=== PATIENT | female | born 1990 | race Caucasian/White ===

== ENCOUNTER 2020-08-06 05:20 | Inpatient (IN) | payer OTHER ==
--- NOTE | 2020-08-06 05:30 | ED ---
Recheck HPI - General Stated Complaint: DKA Time Seen by Provider: 08/06/20 05:24 Source: RN notes reviewed, old records reviewed Limitations: altered mental status, physical limitation - History of Present Illness Initial Comments: This is a 29-year-old female poor story coming in is accepted transfer for DKA. Patient has significant distress brought in by EMS in the transfer breath. Patient poor historian secondary to severe illness and DKA MD Complaint: abnormal lab (DKA), other (accepted in transfer) -: unknown Returns Today for: Called Because of Abnormal Lab/Test, persistent/worsening pain related to initial visit (abdominal pain) Symptoms Since Prior Visit: worsening pain Context: called for abnormal lab result (transfer for DKA) Associated Symptoms: chills, shortness of breath Treatments Prior to Arrival: Given Pain Meds on, other (in insulin GTT) - Related Data Home Medications Medication Instructions Recorded Confirmed ARIPiprazole [Abilify] 2 mg PO DAILY 08/06/20 08/06/20 Azelastine HCl [Astepro] 1 - 2 spray EA NOSTRIL BID 08/06/20 08/06/20 Dicyclomine [Bentyl] 10 mg PO QID PRN 08/06/20 08/06/20 Empagliflozin [Jardiance] 25 mg PO DAILY 08/06/20 08/06/20 Ergocalciferol [Vitamin D2 50,000 unit PO Q7D 08/06/20 08/06/20 (DRISDOL)] FLUoxetine HCL [PROzac] 10 mg PO DAILY 08/06/20 08/06/20 Fexofenadine HCl [Shelbie Allergy] 180 mg PO DAILY 08/06/20 08/06/20 Folic Acid 2 mg PO DAILY 08/06/20 08/06/20 Lovastatin [Mevacor] 20 mg PO HS 08/06/20 08/06/20 Metoclopramide [Reglan] 5 mg PO ACHS 08/06/20 08/06/20 Metoprolol Tartrate [Lopressor] 25 mg PO BID 08/06/20 08/06/20 Montelukast Sodium [Singulair] 10 mg PO HS 08/06/20 08/06/20 Ondansetron Odt [Zofran ODT] 4 mg PO Q8HR PRN 08/06/20 08/06/20 Pantoprazole [Protonix] 40 mg PO DAILY 08/06/20 08/06/20 busPIRone HCL 15 mg PO BID 08/06/20 08/06/20 clonazePAM [KlonoPIN] 0.5 mg PO BID PRN 08/06/20 08/06/20 guanFACINE [Tenex] 1 mg PO HS 08/06/20 08/06/20 lamoTRIgine 200 mg PO BID 08/06/20 08/06/20 lisinopriL [Zestril] 5 mg PO DAILY 08/06/20 08/06/20 metFORMIN HCL ER [Glucophage Xr] 1,000 mg PO BID 08/06/20 08/06/20 traZODone HCL 150 mg PO HS 08/06/20 08/06/20 Previous Rx's Medication Instructions Recorded Insulin Glargine,Hum.rec.anlog 30 unit SQ DAILY #0 08/09/20 [Lantus Solostar] Insulin Lispro [Admelog Solostar] 2 units SQ DIRECTED #5 pen 08/09/20 Allergies Allergy/AdvReac Type Severity Reaction Status Date / Time No Known Allergies Allergy Verified 08/06/20 05:36 Review of Systems ROS Statement: Those systems with pertinent positive or pertinent negative responses have been documented in the HPI. ROS Other: All systems not noted in ROS Statement are negative. General Exam Limitations: altered mental status, physical limitation General appearance: alert, anxious, lethargic, in distress Head exam: Present: atraumatic, normocephalic, normal inspection Eye exam: Present: normal appearance, PERRL, EOMI. Absent: scleral icterus, conjunctival injection, periorbital swelling ENT exam: Present: normal exam, mucous membranes moist Neck exam: Present: normal inspection. Absent: tenderness, meningismus, lymphadenopathy Respiratory exam: Present: respiratory distress, other (tachypnea). Absent: wheezes, rales, rhonchi, stridor Cardiovascular Exam: Present: normal rhythm, tachycardia, normal heart sounds. Absent: systolic murmur, diastolic murmur, rubs, gallop, clicks GI/Abdominal exam: Present: soft, normal bowel sounds. Absent: distended, tenderness, guarding, rebound, rigid Extremities exam: Present: normal inspection, full ROM, normal capillary refill. Absent: tenderness, pedal edema, joint swelling, calf tenderness Back exam: Present: normal inspection Neurological exam: Present: alert, oriented X3, CN II-XII intact Psychiatric exam: Present: normal affect, normal mood Skin exam: Present: warm, dry, intact, normal color. Absent: rash Course Vital Signs 08/06/20 08/06/20 08/06/20 05:29 06:21 07:25 Temperature 97.3 F L Pulse Rate 130 H 128 H 124 H Pulse Rate [ Coding Clerk ] Respiratory 22 20 16 Rate Blood Pressure 92/60 95/65 85/54 O2 Sat by Pulse 100 100 100 Oximetry 08/06/20 08/06/20 08/06/20 08:04 08:32 09:30 Temperature Pulse Rate 131 H 130 H 131 H Pulse Rate [ Coding Clerk ] Respiratory 16 16 22 Rate Blood Pressure 92/64 90/64 96/71 O2 Sat by Pulse 100 100 100 Oximetry 08/06/20 08/06/20 08/06/20 10:36 11:31 12:01 Temperature 97.9 F Pulse Rate 133 H 133 H 133 H Pulse Rate [ Coding Clerk ] Respiratory 20 16 16 Rate Blood Pressure 107/77 111/87 116/87 O2 Sat by Pulse 98 98 98 Oximetry 08/06/20 08/06/20 08/06/20 13:58 15:29 17:06 Temperature 98.3 F 98.3 F Pulse Rate 126 H 130 H 125 H Pulse Rate [ Coding Clerk ] Respiratory 14 12 16 Rate Blood Pressure 125/83 140/92 138/104 O2 Sat by Pulse 98 97 99 Oximetry 08/06/20 08/06/20 08/06/20 18:19 19:20 21:00 Temperature 98.3 F 98.4 F Pulse Rate 137 H 122 H 118 H Pulse Rate [ Coding Clerk ] Respiratory 16 18 18 Rate Blood Pressure 145/101 126/94 126/88 O2 Sat by Pulse 98 98 99 Oximetry 08/07/20 08/07/20 08/07/20 00:22 01:00 02:30 Temperature 98.2 F Pulse Rate 122 H 125 H 121 H Pulse Rate [ Coding Clerk ] Respiratory 18 18 18 Rate Blood Pressure 134/98 117/92 108/82 O2 Sat by Pulse 100 98 97 Oximetry 08/07/20 08/07/20 08/07/20 03:30 06:00 07:00 Temperature 98.0 F Pulse Rate 117 H 111 H 113 H Pulse Rate [ Coding Clerk ] Respiratory 18 18 18 Rate Blood Pressure 110/79 105/67 96/61 O2 Sat by Pulse 98 98 97 Oximetry 08/07/20 08/07/20 08/07/20 07:45 08:07 09:36 Temperature Pulse Rate 108 H 95 Pulse Rate [ 108 H Coding Clerk ] Respiratory 18 18 Rate Blood Pressure 102/65 90/68 O2 Sat by Pulse 96 98 Oximetry 08/07/20 08/07/20 08/07/20 10:18 13:02 14:01 Temperature Pulse Rate 98 101 H 100 Pulse Rate [ Coding Clerk ] Respiratory 18 18 18 Rate Blood Pressure 94/60 107/68 98/76 O2 Sat by Pulse 97 98 98 Oximetry 08/07/20 08/07/20 08/07/20 17:00 18:49 21:14 Temperature Pulse Rate 104 H 103 H 108 H Pulse Rate [ Coding Clerk ] Respiratory 18 18 16 Rate Blood Pressure 107/75 119/84 117/73 O2 Sat by Pulse 98 98 98 Oximetry - Reevaluation(s) Reevaluation #1: 08/06/20 06:36 Medical record is reviewed 08/06/20 06:36 Transferring paperwork is reviewed 08/06/20 06:36 I also did speak with transferring physician regarding findings, Lab values are redrawn, patient still in significant distress Medical Decision Making - Medical Decision Making This is a 29-year-old female DF for evaluation who is accepted as transfer for severe DKA, patient reevaluated here in the ER, patient will be admitted to ICU in severe DKA - Lab Data Result diagrams: 08/09/20 06:39 08/09/20 06:39 Lab Results 08/06/20 08/06/20 08/06/20 Range/Units 06:07 06:07 06:07 WBC 38.7 H (3.8-10.6) k/uL RBC 5.07 (3.80-5.40) m/uL Hgb 15.0 (11.4-16.0) gm/dL Hct 50.9 H (34.0-46.0) % MCV 100.2 H (80.0-100.0) fL MCH 29.6 (25.0-35.0) pg MCHC 29.5 L (31.0-37.0) g/dL RDW 13.2 (11.5-15.5) % Plt Count 384 (150-450) k/uL MPV 10.4 Neutrophils % (Manual) 68 % Band Neuts % (Manual) 11 % Lymphocytes % (Manual) 11 % Monocytes % (Manual) 8 % Metamyelocytes % 2 % Myelocytes % 1 % Neutrophils # (Manual) 30.50 H (1.3-7.7) k/uL Lymphocytes # (Manual) 4.26 (1.0-4.8) k/uL Monocytes # (Manual) 3.10 H (0-1.0) k/uL Metamyelocytes # (Man) 0.77 H (0) k/uL Myelocytes # (Manual) 0.39 H (0) k/uL Nucleated RBCs 0 (0-0) /100 WBC Manual Slide Review Performed Hypochromasia Marked VBG pH (7.31-7.41) VBG pCO2 (37-51) mmHg VBG HCO3 (24-28) mmol/L Sodium 144 (137-145) mmol/L Potassium 6.4 H* (3.5-5.1) mmol/L Chloride 116 H (98-107) mmol/L Carbon Dioxide <5 L* (22-30) mmol/L Anion Gap mmol/L BUN 17 (7-17) mg/dL Creatinine 1.37 H (0.52-1.04) mg/dL Est GFR (CKD-EPI)AfAm 60 (>60 ml/min/1.73 sqM) Est GFR (CKD-EPI)NonAf 52 (>60 ml/min/1.73 sqM) Glucose 319 H (74-99) mg/dL Estimated Ave Glu mg/dL Hemoglobin A1c (4.0-6.0) % Plasma Lactic Acid Duke (0.7-2.0) mmol/L Calcium 8.5 (8.4-10.2) mg/dL Phosphorus 7.7 H (2.5-4.5) mg/dL Total Bilirubin 0.6 (0.2-1.3) mg/dL AST 38 H (14-36) U/L ALT 51 H (4-34) U/L Alkaline Phosphatase 67 (38-126) U/L Creatine Kinase 1461 H* (30-135) U/L Total Protein 7.4 (6.3-8.2) g/dL Albumin 4.6 (3.5-5.0) g/dL Amylase 600 H* (30-110) U/L Lipase 1221 H (23-300) U/L Urine Color Light Yellow Urine Appearance Cloudy H (Clear) Urine pH 5.5 (5.0-8.0) Ur Specific [place] 1.020 (1.001-1.035) Urine Protein 2+ H (Negative) Urine Glucose (UA) 4+ H (Negative) Urine Ketones 4+ H (Negative) Urine Blood Moderate H (Negative) Urine Nitrite Negative (Negative) Urine Bilirubin Negative (Negative) Urine Urobilinogen <2.0 (<2.0) mg/dL Ur Leukocyte Esterase Negative (Negative) Urine WBC 6 H (0-5) /hpf Ur Squamous Epith Cells 1 (0-4) /hpf Amorphous Sediment Rare H (None) /hpf Urine Bacteria Rare H (None) /hpf Hyaline Casts 107 H (0-2) /lpf Urine Mucus Occasional H (None) /hpf Acetone, Qual Positive (Negative) 08/06/20 08/06/20 08/06/20 Range/Units 06:07 06:07 06:07 WBC (3.8-10.6) k/uL RBC (3.80-5.40) m/uL Hgb (11.4-16.0) gm/dL Hct (34.0-46.0) % MCV (80.0-100.0) fL MCH (25.0-35.0) pg MCHC (31.0-37.0) g/dL RDW (11.5-15.5) % Plt Count (150-450) k/uL MPV Neutrophils % (Manual) % Band Neuts % (Manual) % Lymphocytes % (Manual) % Monocytes % (Manual) % Metamyelocytes % % Myelocytes % % Neutrophils # (Manual) (1.3-7.7) k/uL Lymphocytes # (Manual) (1.0-4.8) k/uL Monocytes # (Manual) (0-1.0) k/uL Metamyelocytes # (Man) (0) k/uL Myelocytes # (Manual) (0) k/uL Nucleated RBCs (0-0) /100 WBC Manual Slide Review Hypochromasia VBG pH 6.84 L* (7.31-7.41) VBG pCO2 18 L* (37-51) mmHg VBG HCO3 3 L* (24-28) mmol/L Sodium (137-145) mmol/L Potassium (3.5-5.1) mmol/L Chloride (98-107) mmol/L Carbon Dioxide (22-30) mmol/L Anion Gap mmol/L BUN (7-17) mg/dL Creatinine (0.52-1.04) mg/dL Est GFR (CKD-EPI)AfAm (>60 ml/min/1.73 sqM) Est GFR (CKD-EPI)NonAf (>60 ml/min/1.73 sqM) Glucose (74-99) mg/dL Estimated Ave Glu mg/dL 197 Hemoglobin A1c 8.5 H (4.0-6.0) % Plasma Lactic Acid Duke 2.5 H* (0.7-2.0) mmol/L Calcium (8.4-10.2) mg/dL Phosphorus (2.5-4.5) mg/dL Total Bilirubin (0.2-1.3) mg/dL AST (14-36) U/L ALT (4-34) U/L Alkaline Phosphatase (38-126) U/L Creatine Kinase (30-135) U/L Total Protein (6.3-8.2) g/dL Albumin (3.5-5.0) g/dL Amylase (30-110) U/L Lipase (23-300) U/L Urine Color Urine Appearance (Clear) Urine pH (5.0-8.0) Ur Specific [place] (1.001-1.035) Urine Protein (Negative) Urine Glucose (UA) (Negative) Urine Ketones (Negative) Urine Blood (Negative) Urine Nitrite (Negative) Urine Bilirubin (Negative) Urine Urobilinogen (<2.0) mg/dL Ur Leukocyte Esterase (Negative) Urine WBC (0-5) /hpf Ur Squamous Epith Cells (0-4) /hpf Amorphous Sediment (None) /hpf Urine Bacteria (None) /hpf Hyaline Casts (0-2) /lpf Urine Mucus (None) /hpf Acetone, Qual (Negative) - Radiology Data Radiology results: report reviewed (XR abd series and chest), image reviewed Critical Care Time Critical Care Time: Yes Total Critical Care Time: 65 Disposition Clinical Impression: Abdominal pain, DKA (diabetic ketoacidoses), Tachycardia, Rhabdomyolysis, Pancreatitis Disposition: ADMITTED IP TO THIS [facility] Condition: Good Is patient prescribed a controlled substance at d/c from ED?: No
[2020-08-06] MEDS ORDERED: SODIUM CHLORIDE 0.9% 1,000 ML IV STA ×2 (05:38)
[2020-08-06] MEDS ORDERED: PANTOPRAZOLE 40 MG/10 ML VIAL IVP STA (05:38)
[2020-08-06] MEDS ORDERED: ONDANSETRON 4 MG/2 ML VIAL IVP STA (05:38)
[2020-08-06] MEDS ORDERED: fentaNYL (PF) 50 MCG/ML 2 ML AMP IV STA (05:39)
[2020-08-06 06:26] LABS: Sodium 144 mmol/L (137-145)
[2020-08-06 06:27] LABS: ALT 51 U/L (4-34); AST 38 U/L (14-36); African American GFR (CKD) 60 (>60 ml/min/1.73 sqM); Albumin 4.6 g/dL (3.5-5.0); Alkaline Phosphatase 67 U/L (38-126); Blood Urea Nitrogen 17 mg/dL (7-17); Calcium 8.5 mg/dL (8.4-10.2); Chloride 116 mmol/L (98-107); Glucose 319 mg/dL (74-99); Lipase 1221 U/L (23-300); Non-African American GFR(CKD) 52 (>60 ml/min/1.73 sqM); Phosphorus 7.7 mg/dL (2.5-4.5); Total Bilirubin 0.6 mg/dL (0.2-1.3); Total Protein 7.4 g/dL (6.3-8.2)
[2020-08-06 06:29] LABS: VBG PH 6.84 (7.31-7.41)
[2020-08-06] MEDS ORDERED: SODIUM BICARB 8.4% 50 ML SYR (1 MEQ/ML) IV STA ×2 (06:30)
[2020-08-06] MEDS ORDERED: NALOXONE 0.4 MG/ML 1 ML VIAL IV PRN (06:31)
[2020-08-06] MEDS ORDERED: IPRATROPIUM-ALBUTEROL 3 ML NEB INHALATION PRN (06:31)
[2020-08-06 06:35] LABS: Amorphous Sediment,Urine Rare /hpf; Appearance,Urine Cloudy (Clear); Bacteria,Urine Rare /hpf; Bilirubin,Urine Negative (Negative); Blood,Urine Moderate (Negative); Color,Urine Light Yellow; Glucose,Urine (UA) 4+ (Negative); Hyaline Casts,Urine 107 /lpf (0-2); Leukocyte Esterase,Urine Negative (Negative); Mucus,Urine Occasional /hpf; Nitrite,Urine Negative (Negative); PH, Urine 5.5 (5.0-8.0); Protein,Urine 2+ (Negative); Squamous Epithelial Cell,Urine 1 /hpf (0-4); Urobilinogen,Urine <2.0 mg/dL (<2.0); WBC,Urine 6 /hpf (0-5)
[2020-08-06 06:36] LABS: Ketones,Urine 4+ (Negative)
[2020-08-06 06:39] LABS: HCT 50.9 % (34.0-46.0); Hypochromasia Marked; MCH 29.6 pg (25.0-35.0); MCHC 29.5 g/dL (31.0-37.0); MCV 100.2 fL (80.0-100.0); Mean Platelet Volume 10.4; Platelet Count 384 k/uL (150-450); RBC 5.07 m/uL (3.80-5.40); RDW 13.2 % (11.5-15.5); WBC 38.7 k/uL (3.8-10.6)
[2020-08-06 06:41] LABS: Potassium 6.4 mmol/L (3.5-5.1)
[2020-08-06 06:42] LABS: Amylase 600 U/L (30-110); Carbon Dioxide <5 mmol/L (22-30); Creatine Kinase 1461 U/L (30-135)
[2020-08-06] MEDS ORDERED: Potassium Replacement Protocol 1 EACH MISC MISCELLANE PRN (06:45)
[2020-08-06] MEDS ORDERED: Magnesium Replacement Protocol 1 EACH MISC MISCELLANE PRN (06:45)
[2020-08-06] MEDS ORDERED: SODIUM CHLORIDE 0.9% 1,000 ML IV ONE (06:46)
[2020-08-06] MEDS ORDERED: AMPICILLIN-SULBACTAM 3 GM in SODIUM CHLORIDE 0.9% 100 ML IVPB STA ×2 (06:52→07:34)
[2020-08-06] MEDS: SODIUM CHLORIDE 0.9% 1,000 ML IV SCH ×3 (07:04→18:34)
[2020-08-06 07:18] LABS: Glucose,Whole Blood 274 mg/dL (75-99)
[2020-08-06] MEDS: D5-0.45% NACL WITH KCL 20MEQ/L 1,000 ML IV SCH ×3 (07:27→19:47)
[2020-08-06] MEDS: INSULIN REGULAR 100 UNIT in SODIUM CHLORIDE 0.9% 100 ML IV SCH (07:28)
[2020-08-06 07:58] LABS: Band Neutrophils % 11 %; Lymphocytes # (M) 4.26 k/uL (1.0-4.8); Metamyelocytes # (M) 0.77 k/uL (0); Metamyelocytes % 2 %; Myelocytes # (M) 0.39 k/uL (0); Myelocytes % 1 %; Neutrophils % (M) 68 %; Nucleated Red Blood Cells 0 /100 WBC (0-0); Total Cells Counted 200
[2020-08-06 08:42] LABS: Glucose,Whole Blood 217 mg/dL (75-99)
[2020-08-06 09:43] LABS: Glucose,Whole Blood 177 mg/dL (75-99)
[2020-08-06 10:42] LABS: Glucose,Whole Blood 147 mg/dL (75-99)
[2020-08-06 11:32] LABS: Glucose,Whole Blood 148 mg/dL (75-99)
[2020-08-06] MEDS: MORPHINE SULFATE 4 MG/ML SYRINGE IV PRN ×2 (11:57→18:51)
[2020-08-06] MEDS: ENOXAPARIN 40 MG/0.4 ML SYRINGE SQ SCH (11:57)
[2020-08-06 11:59] LABS: African American GFR (CKD) >90 (>60 ml/min/1.73 sqM); Blood Urea Nitrogen 11 mg/dL (7-17); Chloride 116 mmol/L (98-107); Glucose 164 mg/dL (74-99); Non-African American GFR(CKD) 85 (>60 ml/min/1.73 sqM); Phosphorus 2.2 mg/dL (2.5-4.5); Potassium 4.8 mmol/L (3.5-5.1); Sodium 140 mmol/L (137-145)
[2020-08-06 12:19] LABS: Carbon Dioxide <5 mmol/L (22-30)
[2020-08-06] MEDS ORDERED: clonazePAM 0.5 MG TAB PO PRN (12:23)
[2020-08-06] MEDS ORDERED: DICYCLOMINE 10 MG CAP PO PRN (12:23)
[2020-08-06] MEDS ORDERED: ONDANSETRON 4 MG/2 ML VIAL IVP PRN (12:28)
[2020-08-06 12:36] LABS: Glucose,Whole Blood 162 mg/dL (75-99)
[2020-08-06 13:04] LABS: African American GFR (CKD) >90 (>60 ml/min/1.73 sqM); Anion Gap 18 mmol/L; Blood Urea Nitrogen 10 mg/dL (7-17); Calcium 7.5 mg/dL (8.4-10.2); Chloride 115 mmol/L (98-107); Glucose 162 mg/dL (74-99); Non-African American GFR(CKD) >90 (>60 ml/min/1.73 sqM); Potassium 4.8 mmol/L (3.5-5.1); Sodium 139 mmol/L (137-145)
[2020-08-06 13:08] LABS: Carbon Dioxide 6 mmol/L (22-30)
--- NOTE | 2020-08-06 13:13 | P.CNPUL ---
History of Present Illness Consult date: 08/06/20 Requesting physician: Mihai Brock Chief complaint: Nausea, vomiting, DKA History of present illness: 29-year-old white male patient past medical history of diabetes mellitus type 1, previous history of appendectomy, cholecystectomy, surgery for repair of pyloric stenosis, lifetime nonsmoker who presented to the emergency department on 08/06/2020 for evaluation of persistent worsening pain in the abdomen, nausea vomiting, chills, shortness of breath, and altered mentation. Patient was found to be in acute diabetic ketoacidosis, positive serum acetone, acute anion gap metabolic acidosis with CO2 of less than 5, and acute pancreatitis with amylase of 600, and lipase of 1221. Venous blood gas was obtained showing pH of 6.84, pCO2 of 18, and bicarbonate of only 3, patient was given sodium bicarbonate pu shes, she was fluid resuscitated, and started on insulin infusion. She was started on Unasyn for empiric embedded coverage, blood cultures have been sent and pending at this time, lab work showed leukocytosis, orbital, 38.7, hemoglobin was 15, hematocrit was increased at 50.9 consistent with dehydration. Sodium was 140, potassium 4.8, chloride was 116, CO2 is less than 5, B1 is 11 creatinine 0.91, AST was 38, ALT was 51, CK was 1461, urinalysis was cloudy, showed 2+ protein 4+ glucose, 4+ ketones, moderate amount of blood, no clear evidence of urinary tract infection. Patient continues on the DKA protocol, continues on insulin infusion, she is waking up, she is answering some simple questions, denies any acute distress, no further vomiting, is currently on D5 half-normal saline with 20 of potassium running at 150 ML per hour, her insulin infusion is at 3.5 units per hour. She is sinus tach on the monitor in the low 100s, hemodynamically she stable, repeat blood work is pending at this time. Review of Systems All systems: negative Constitutional: Reports lethargy, Reports weakness, Denies chills, Denies fever Eyes: denies blurred vision, denies pain Ears, nose, mouth and throat: Denies headache, Denies sore throat Cardiovascular: Denies chest pain, Denies shortness of breath Respiratory: Reports dyspnea, Denies cough Gastrointestinal: Reports nausea, Reports vomiting, Denies abdominal pain, Denies diarrhea Genitourinary: Denies dysuria, Denies hematuria Musculoskeletal: Denies myalgias Integumentary: Denies pruritus, Denies rash Neurological: Denies numbness, Denies weakness Psychiatric: Denies anxiety, Denies depression Endocrine: Denies fatigue, Denies weight change Past Medical History Past Medical History: Diabetes Mellitus History of Any Multi-Drug Resistant Organisms: None Reported Past Surgical History: Appendectomy, Cholecystectomy Additional Past Surgical History / Comment(s): pyloric stenosis repair. eye surgery. Past Psychological History: No Psychological Hx Reported Smoking Status: Never smoker Past Alcohol Use History: None Reported Past Drug Use History: None Reported Medications and Allergies Home Medications Medication Instructions Recorded Confirmed Type ARIPiprazole [Abilify] 2 mg PO DAILY 08/06/20 08/06/20 History Azelastine HCl [Astepro] 1 - 2 spray EA NOSTRIL BID 08/06/20 08/06/20 History Dicyclomine [Bentyl] 10 mg PO QID PRN 08/06/20 08/06/20 History Empagliflozin [Jardiance] 25 mg PO DAILY 08/06/20 08/06/20 History Ergocalciferol [Vitamin D2] 50,000 unit PO Q7D 08/06/20 08/06/20 History Exenatide Microspheres [Bydureon 2 mg SQ Q7D 08/06/20 08/06/20 History Pen] FLUoxetine HCL [PROzac] 10 mg PO DAILY 08/06/20 08/06/20 History Fexofenadine HCl [Shelbie Allergy] 180 mg PO DAILY 08/06/20 08/06/20 History Folic Acid 2 mg PO DAILY 08/06/20 08/06/20 History Insulin Glargine,Hum.rec.anlog 40 unit SQ DAILY 08/06/20 08/06/20 History [Lantus Solostar] Lovastatin [Mevacor] 20 mg PO HS 08/06/20 08/06/20 History Metoclopramide [Reglan] 5 mg PO ACHS 08/06/20 08/06/20 History Metoprolol Tartrate [Lopressor] 25 mg PO BID 08/06/20 08/06/20 History Montelukast Sodium [Singulair] 10 mg PO HS 08/06/20 08/06/20 History Ondansetron Odt [Zofran Odt] 4 mg PO Q8HR PRN 08/06/20 08/06/20 History Pantoprazole [Protonix] 40 mg PO DAILY 08/06/20 08/06/20 History Semaglutide [Ozempic] 0.5 mg SQ Q7D 08/06/20 08/06/20 History busPIRone HCL 15 mg PO BID 08/06/20 08/06/20 History clonazePAM [KlonoPIN] 0.5 mg PO BID PRN 08/06/20 08/06/20 History guanFACINE [Tenex] 1 mg PO HS 08/06/20 08/06/20 History lamoTRIgine 200 mg PO BID 08/06/20 08/06/20 History lisinopriL [Zestril] 5 mg PO DAILY 08/06/20 08/06/20 History metFORMIN HCL ER [Glucophage Xr] 1,000 mg PO BID 08/06/20 08/06/20 History traZODone HCL 150 mg PO HS 08/06/20 08/06/20 History Allergies Allergy/AdvReac Type Severity Reaction Status Date / Time No Known Allergies Allergy Verified 08/06/20 05:36 Physical Exam Vitals: Vital Signs Temp Pulse Resp BP Pulse Ox 08/06/20 12:01 133 H 16 116/87 98 08/06/20 11:31 133 H 16 111/87 98 08/06/20 10:36 97.9 F 133 H 20 107/77 98 08/06/20 09:30 131 H 22 96/71 100 08/06/20 08:32 130 H 16 90/64 100 08/06/20 08:04 131 H 16 92/64 100 08/06/20 07:25 124 H 16 85/54 100 08/06/20 06:21 128 H 20 95/65 100 08/06/20 05:29 97.3 F L 130 H 22 92/60 100 Intake and Output 08/05/20 08/06/20 08/06/20 22:59 06:59 14:59 Intake Total 27.837 Output Total 1700 Balance -1672.163 Intake: Intake, IV Titration 27.837 Amount Insulin Regular 100 unit 27.837 In Sodium Chloride 0.9% 100 ml @ 0.1 UNITS/KG/HR 7.238 mls/hr IV .[id number] [facility] Rx#:[id number] Output: Urine 1700 Other: Weight 71.668 kg GENERAL EXAM: Alert, pleasant, 29-year-old white female, awake and alert, oriented times 3, on 2 L of oxygen with a pulse ox of 98% comfortable in no apparent distress. HEAD: Normocephalic/atraumatic. EYES: Normal reaction of pupils, equal size. Conjunctiva pink, sclera white. NOSE: Clear with pink turbinates. THROAT: No erythema or exudates. NECK: No masses, no JVD, no thyroid enlargement, no adenopathy. CHEST: No chest wall deformity. Symmetrical expansion. LUNGS: Equal air entry with no crackles, wheeze, rhonchi or dullness. CVS: Regular rate and rhythm, normal S1 and S2, no gallops, no murmurs, no rubs ABDOMEN: Soft, nontender. No hepatosplenomegaly, normal bowel sounds, no guarding or rigidity. EXTREMITIES: No clubbing, no edema, no cyanosis, 2+ pulses and upper and lower extremities. MUSCULOSKELETAL: Muscle strength and tone normal. SPINE: No scoliosis or deformity SKIN: No rashes CENTRAL NERVOUS SYSTEM: Alert and oriented -3. No focal deficits, tone is normal in all 4 extremities. PSYCHIATRIC: Alert and oriented -3. Appropriate affect. Intact judgment and insight. Results - Laboratory Findings CBC and BMP: 08/06/20 06:07 08/06/20 11:40 Abnormal lab findings: Abnormal Labs 08/06/20 08/06/20 08/06/20 06:07 06:07 06:07 WBC 38.7 H Hct 50.9 H MCV 100.2 H MCHC 29.5 L Neutrophils # (Manual) 30.50 H Monocytes # (Manual) 3.10 H Metamyelocytes # (Man) 0.77 H Myelocytes # (Manual) 0.39 H VBG pH VBG pCO2 VBG HCO3 Potassium 6.4 H* Chloride 116 H Carbon Dioxide <5 L* Creatinine 1.37 H Glucose 319 H POC Glucose (mg/dL) Plasma Lactic Acid [place] Phosphorus 7.7 H AST 38 H ALT 51 H Creatine Kinase 1461 H* Amylase 600 H* Lipase 1221 H Urine Appearance Cloudy H Urine Protein 2+ H Urine Glucose (UA) 4+ H Urine Ketones 4+ H Urine Blood Moderate H Urine WBC 6 H Amorphous Sediment Rare H Urine Bacteria Rare H Hyaline Casts 107 H Urine Mucus Occasional H 08/06/20 08/06/20 08/06/20 06:07 06:07 07:08 WBC Hct MCV MCHC Neutrophils # (Manual) Monocytes # (Manual) Metamyelocytes # (Man) Myelocytes # (Manual) VBG pH 6.84 L* VBG pCO2 18 L* VBG HCO3 3 L* Potassium Chloride Carbon Dioxide Creatinine Glucose POC Glucose (mg/dL) 274 H Plasma Lactic Acid [place] 2.5 H* Phosphorus AST ALT Creatine Kinase Amylase Lipase Urine Appearance Urine Protein Urine Glucose (UA) Urine Ketones Urine Blood Urine WBC Amorphous Sediment Urine Bacteria Hyaline Casts Urine Mucus 08/06/20 08/06/20 08/06/20 08:31 09:32 10:31 WBC Hct MCV MCHC Neutrophils # (Manual) Monocytes # (Manual) Metamyelocytes # (Man) Myelocytes # (Manual) VBG pH VBG pCO2 VBG HCO3 Potassium Chloride Carbon Dioxide Creatinine Glucose POC Glucose (mg/dL) 217 H 177 H 147 H Plasma Lactic Acid [place] Phosphorus AST ALT Creatine Kinase Amylase Lipase Urine Appearance Urine Protein Urine Glucose (UA) Urine Ketones Urine Blood Urine WBC Amorphous Sediment Urine Bacteria Hyaline Casts Urine Mucus 08/06/20 08/06/20 08/06/20 11:30 11:40 12:34 WBC Hct MCV MCHC Neutrophils # (Manual) Monocytes # (Manual) Metamyelocytes # (Man) Myelocytes # (Manual) VBG pH VBG pCO2 VBG HCO3 Potassium Chloride 116 H Carbon Dioxide <5 L* Creatinine Glucose 164 H POC Glucose (mg/dL) 148 H 162 H Plasma Lactic Acid [place] Phosphorus 2.2 L AST ALT Creatine Kinase Amylase Lipase Urine Appearance Urine Protein Urine Glucose (UA) Urine Ketones Urine Blood Urine WBC Amorphous Sediment Urine Bacteria Hyaline Casts Urine Mucus Assessment and Plan Plan: Assessment: #1. Acute diabetic ketoacidosis #2. Severe non-anion gap metabolic acidosis related to the above #3. Dehydration #4. Altered mental status, related to metabolic encephalopathy #5. Rule out possibility of sepsis #6. Leukocytosis #7. Acute pancreatitis #8. Poorly controlled diabetes mellitus #9. Hypertension #10. Bipolar disorder Plan: Continue on DKA protocol, IV fluids, insulin infusion, awaiting repeat the BMP, clinically patient is looking better still little tachycardic, she is waking up, she is answering questions, anticipate improvement in her blood work. Awaiting a bed in the intensive care unit, continue with empiric antibiotics, will obtain baseline chest x-ray, urinalysis has shown no evidence of infection. Her blood cultures are pending, we'll continue to follow I performed a history & physical examination of the patient and discussed their management with my nurse practitioner, Yuki Tolentino. I reviewed the nurse practitioner's note and agree with the documented findings and plan of care. Lung sounds are positive for clear breath sounds. The findings and the impression was discussed with the patient. I attest to the documentation by the nurse practitioner. Time with Patient: Greater than 30
--- NOTE | 2020-08-06 13:36 | XR ---
EXAMINATION TYPE: XR chest 1V portable DATE OF EXAM: 08/06/2020 COMPARISON: NONE HISTORY: Chest pain TECHNIQUE: Single frontal view of the chest is obtained. FINDINGS: There is no focal air space opacity, pleural effusion, or pneumothorax seen. The cardiac silhouette size is within normal limits. The osseous structures are intact. IMPRESSION: 1. No acute process.
[2020-08-06 13:47] LABS: Glucose,Whole Blood 148 mg/dL (75-99)
[2020-08-06] MEDS: ARIPiprazole 2 MG TAB PO SCH (13:49)
[2020-08-06 15:30] LABS: Glucose,Whole Blood 160 mg/dL (75-99)
[2020-08-06 17:05] LABS: Glucose,Whole Blood 168 mg/dL (75-99)
--- NOTE | 2020-08-06 17:17 | P.HPIM ---
History of Present Illness H&P Date: 08/06/20 Chief Complaint: Elevated blood sugars and abdominal pain The patient is a 29-year-old female with a history of diabetes type 1, appendectomy, cholecystectomy, who presented to the emergency room this a.m. for persistent abdominal pain, nausea vomiting, shortness of breath, chills,. The patient states she has been sick since last . She presented and was found to be in DKA with anion gap with a bicarb less than 5, she also was noted to have an acute pancreatitis with an amylase of 600 and lipase of 1221. The patient was given bicarb, IV fluids, she was started on insulin drip, and because of a leukocytosis she was also started on IV Unasyn. The patient was also noted to have an elevated CPK of 1461, a UA showed 2+ protein, 4+ glucose, 4+ ketones, moderate blood. The patient was seen by me and she was still in the emergency room pending a bed in the ICU she was alert and oriented and able to give a history. She denies any other sick contacts, she denies any diarrhea or night sweats. The patient states that she is compliant with her medications. She has been unable to eat because of nausea and vomiting. Review of Systems Complete review of systems was done and negative other than as stated above Past Medical History Past Medical History: Diabetes Mellitus History of Any Multi-Drug Resistant Organisms: None Reported Past Surgical History: Appendectomy, Cholecystectomy Additional Past Surgical History / Comment(s): pyloric stenosis repair. eye surgery. Past Psychological History: No Psychological Hx Reported Smoking Status: Never smoker Past Alcohol Use History: None Reported Past Drug Use History: None Reported Medications and Allergies Home Medications Medication Instructions Recorded Confirmed Type ARIPiprazole [Abilify] 2 mg PO DAILY 08/06/20 08/06/20 History Azelastine HCl [Astepro] 1 - 2 spray EA NOSTRIL BID 08/06/20 08/06/20 History Dicyclomine [Bentyl] 10 mg PO QID PRN 08/06/20 08/06/20 History Empagliflozin [Jardiance] 25 mg PO DAILY 08/06/20 08/06/20 History Ergocalciferol [Vitamin D2] 50,000 unit PO Q7D 08/06/20 08/06/20 History Exenatide Microspheres [Bydureon 2 mg SQ Q7D 08/06/20 08/06/20 History Pen] FLUoxetine HCL [PROzac] 10 mg PO DAILY 08/06/20 08/06/20 History Fexofenadine HCl [Shelbie Allergy] 180 mg PO DAILY 08/06/20 08/06/20 History Folic Acid 2 mg PO DAILY 08/06/20 08/06/20 History Insulin Glargine,Hum.rec.anlog 40 unit SQ DAILY 08/06/20 08/06/20 History [Lantus Solostar] Lovastatin [Mevacor] 20 mg PO HS 08/06/20 08/06/20 History Metoclopramide [Reglan] 5 mg PO ACHS 08/06/20 08/06/20 History Metoprolol Tartrate [Lopressor] 25 mg PO BID 08/06/20 08/06/20 History Montelukast Sodium [Singulair] 10 mg PO HS 08/06/20 08/06/20 History Ondansetron Odt [Zofran Odt] 4 mg PO Q8HR PRN 08/06/20 08/06/20 History Pantoprazole [Protonix] 40 mg PO DAILY 08/06/20 08/06/20 History Semaglutide [Ozempic] 0.5 mg SQ Q7D 08/06/20 08/06/20 History busPIRone HCL 15 mg PO BID 08/06/20 08/06/20 History clonazePAM [KlonoPIN] 0.5 mg PO BID PRN 08/06/20 08/06/20 History guanFACINE [Tenex] 1 mg PO HS 08/06/20 08/06/20 History lamoTRIgine 200 mg PO BID 08/06/20 08/06/20 History lisinopriL [Zestril] 5 mg PO DAILY 08/06/20 08/06/20 History metFORMIN HCL ER [Glucophage Xr] 1,000 mg PO BID 08/06/20 08/06/20 History traZODone HCL 150 mg PO HS 08/06/20 08/06/20 History Allergies Allergy/AdvReac Type Severity Reaction Status Date / Time No Known Allergies Allergy Verified 08/06/20 05:36 Physical Exam Vitals: Vital Signs Temp Pulse Resp BP Pulse Ox 08/06/20 17:06 98.3 F 125 H 16 138/104 99 08/06/20 15:29 98.3 F 130 H 12 140/92 97 08/06/20 13:58 126 H 14 125/83 98 08/06/20 12:01 133 H 16 116/87 98 08/06/20 11:31 133 H 16 111/87 98 08/06/20 10:36 97.9 F 133 H 20 107/77 98 08/06/20 09:30 131 H 22 96/71 100 08/06/20 08:32 130 H 16 90/64 100 08/06/20 08:04 131 H 16 92/64 100 08/06/20 07:25 124 H 16 85/54 100 08/06/20 06:21 128 H 20 95/65 100 08/06/20 05:29 97.3 F L 130 H 22 92/60 100 Intake and Output 08/06/20 08/06/20 08/06/20 06:59 14:59 22:59 Intake Total 30.069 Output Total 1700 Balance -1669.931 Intake: Intake, IV Titration 30.069 Amount Insulin Regular 100 unit 30.069 In Sodium Chloride 0.9% 100 ml @ 0.1 UNITS/KG/HR 7.238 mls/hr IV .[id number] [facility] Rx#:[id number] Output: Urine 1700 Other: Weight 71.668 kg - Constitutional General appearance: no acute distress - EENT Eyes: PERRLA - Respiratory Respiratory: bilateral: CTA - Cardiovascular Tachycardic - Gastrointestinal Localized gastrointestinal: tender: diffuse - Neurologic Neurologic: CNII-XII intact - Musculoskeletal Musculoskeletal: strength equal bilaterally - Psychiatric Psychiatric: A&O x's 3, appropriate affect Results CBC & Chem 7: 08/06/20 06:07 08/06/20 12:26 Labs: Abnormal Lab Results - Last 24 Hours (Table) 08/06/20 08/06/20 08/06/20 Range/Units 06:07 06:07 06:07 WBC 38.7 H (3.8-10.6) k/uL Hct 50.9 H (34.0-46.0) % MCV 100.2 H (80.0-100.0) fL MCHC 29.5 L (31.0-37.0) g/dL Neutrophils # (Manual) 30.50 H (1.3-7.7) k/uL Monocytes # (Manual) 3.10 H (0-1.0) k/uL Metamyelocytes # (Man) 0.77 H (0) k/uL Myelocytes # (Manual) 0.39 H (0) k/uL VBG pH (7.31-7.41) VBG pCO2 (37-51) mmHg VBG HCO3 (24-28) mmol/L Potassium 6.4 H* (3.5-5.1) mmol/L Chloride 116 H (98-107) mmol/L Carbon Dioxide <5 L* (22-30) mmol/L Creatinine 1.37 H (0.52-1.04) mg/dL Glucose 319 H (74-99) mg/dL POC Glucose (mg/dL) (75-99) mg/dL Plasma Lactic Acid Duke (0.7-2.0) mmol/L Calcium (8.4-10.2) mg/dL Phosphorus 7.7 H (2.5-4.5) mg/dL AST 38 H (14-36) U/L ALT 51 H (4-34) U/L Creatine Kinase 1461 H* (30-135) U/L Amylase 600 H* (30-110) U/L Lipase 1221 H (23-300) U/L Urine Appearance Cloudy H (Clear) Urine Protein 2+ H (Negative) Urine Glucose (UA) 4+ H (Negative) Urine Ketones 4+ H (Negative) Urine Blood Moderate H (Negative) Urine WBC 6 H (0-5) /hpf Amorphous Sediment Rare H (None) /hpf Urine Bacteria Rare H (None) /hpf Hyaline Casts 107 H (0-2) /lpf Urine Mucus Occasional H (None) /hpf 08/06/20 08/06/20 08/06/20 Range/Units 06:07 06:07 07:08 WBC (3.8-10.6) k/uL Hct (34.0-46.0) % MCV (80.0-100.0) fL MCHC (31.0-37.0) g/dL Neutrophils # (Manual) (1.3-7.7) k/uL Monocytes # (Manual) (0-1.0) k/uL Metamyelocytes # (Man) (0) k/uL Myelocytes # (Manual) (0) k/uL VBG pH 6.84 L* (7.31-7.41) VBG pCO2 18 L* (37-51) mmHg VBG HCO3 3 L* (24-28) mmol/L Potassium (3.5-5.1) mmol/L Chloride (98-107) mmol/L Carbon Dioxide (22-30) mmol/L Creatinine (0.52-1.04) mg/dL Glucose (74-99) mg/dL POC Glucose (mg/dL) 274 H (75-99) mg/dL Plasma Lactic Acid Duke 2.5 H* (0.7-2.0) mmol/L Calcium (8.4-10.2) mg/dL Phosphorus (2.5-4.5) mg/dL AST (14-36) U/L ALT (4-34) U/L Creatine Kinase (30-135) U/L Amylase (30-110) U/L Lipase (23-300) U/L Urine Appearance (Clear) Urine Protein (Negative) Urine Glucose (UA) (Negative) Urine Ketones (Negative) Urine Blood (Negative) Urine WBC (0-5) /hpf Amorphous Sediment (None) /hpf Urine Bacteria (None) /hpf Hyaline Casts (0-2) /lpf Urine Mucus (None) /hpf 08/06/20 08/06/20 08/06/20 Range/Units 08:31 09:32 10:31 WBC (3.8-10.6) k/uL Hct (34.0-46.0) % MCV (80.0-100.0) fL MCHC (31.0-37.0) g/dL Neutrophils # (Manual) (1.3-7.7) k/uL Monocytes # (Manual) (0-1.0) k/uL Metamyelocytes # (Man) (0) k/uL Myelocytes # (Manual) (0) k/uL VBG pH (7.31-7.41) VBG pCO2 (37-51) mmHg VBG HCO3 (24-28) mmol/L Potassium (3.5-5.1) mmol/L Chloride (98-107) mmol/L Carbon Dioxide (22-30) mmol/L Creatinine (0.52-1.04) mg/dL Glucose (74-99) mg/dL POC Glucose (mg/dL) 217 H 177 H 147 H (75-99) mg/dL Plasma Lactic Acid Duke (0.7-2.0) mmol/L Calcium (8.4-10.2) mg/dL Phosphorus (2.5-4.5) mg/dL AST (14-36) U/L ALT (4-34) U/L Creatine Kinase (30-135) U/L Amylase (30-110) U/L Lipase (23-300) U/L Urine Appearance (Clear) Urine Protein (Negative) Urine Glucose (UA) (Negative) Urine Ketones (Negative) Urine Blood (Negative) Urine WBC (0-5) /hpf Amorphous Sediment (None) /hpf Urine Bacteria (None) /hpf Hyaline Casts (0-2) /lpf Urine Mucus (None) /hpf 08/06/20 08/06/20 08/06/20 Range/Units 11:30 11:40 12:26 WBC (3.8-10.6) k/uL Hct (34.0-46.0) % MCV (80.0-100.0) fL MCHC (31.0-37.0) g/dL Neutrophils # (Manual) (1.3-7.7) k/uL Monocytes # (Manual) (0-1.0) k/uL Metamyelocytes # (Man) (0) k/uL Myelocytes # (Manual) (0) k/uL VBG pH (7.31-7.41) VBG pCO2 (37-51) mmHg VBG HCO3 (24-28) mmol/L Potassium (3.5-5.1) mmol/L Chloride 116 H (98-107) mmol/L Carbon Dioxide <5 L* (22-30) mmol/L Creatinine (0.52-1.04) mg/dL Glucose 164 H (74-99) mg/dL POC Glucose (mg/dL) 148 H (75-99) mg/dL Plasma Lactic Acid Duke (0.7-2.0) mmol/L Calcium (8.4-10.2) mg/dL Phosphorus 2.2 L 2.1 L (2.5-4.5) mg/dL AST (14-36) U/L ALT (4-34) U/L Creatine Kinase (30-135) U/L Amylase (30-110) U/L Lipase (23-300) U/L Urine Appearance (Clear) Urine Protein (Negative) Urine Glucose (UA) (Negative) Urine Ketones (Negative) Urine Blood (Negative) Urine WBC (0-5) /hpf Amorphous Sediment (None) /hpf Urine Bacteria (None) /hpf Hyaline Casts (0-2) /lpf Urine Mucus (None) /hpf 08/06/20 08/06/20 08/06/20 Range/Units 12:26 12:34 13:45 WBC (3.8-10.6) k/uL Hct (34.0-46.0) % MCV (80.0-100.0) fL MCHC (31.0-37.0) g/dL Neutrophils # (Manual) (1.3-7.7) k/uL Monocytes # (Manual) (0-1.0) k/uL Metamyelocytes # (Man) (0) k/uL Myelocytes # (Manual) (0) k/uL VBG pH (7.31-7.41) VBG pCO2 (37-51) mmHg VBG HCO3 (24-28) mmol/L Potassium (3.5-5.1) mmol/L Chloride 115 H (98-107) mmol/L Carbon Dioxide 6 L* (22-30) mmol/L Creatinine (0.52-1.04) mg/dL Glucose 162 H (74-99) mg/dL POC Glucose (mg/dL) 162 H 148 H (75-99) mg/dL Plasma Lactic Acid Duke (0.7-2.0) mmol/L Calcium 7.5 L (8.4-10.2) mg/dL Phosphorus (2.5-4.5) mg/dL AST (14-36) U/L ALT (4-34) U/L Creatine Kinase (30-135) U/L Amylase (30-110) U/L Lipase (23-300) U/L Urine Appearance (Clear) Urine Protein (Negative) Urine Glucose (UA) (Negative) Urine Ketones (Negative) Urine Blood (Negative) Urine WBC (0-5) /hpf Amorphous Sediment (None) /hpf Urine Bacteria (None) /hpf Hyaline Casts (0-2) /lpf Urine Mucus (None) /hpf 08/06/20 08/06/20 Range/Units 15:28 17:04 WBC (3.8-10.6) k/uL Hct (34.0-46.0) % MCV (80.0-100.0) fL MCHC (31.0-37.0) g/dL Neutrophils # (Manual) (1.3-7.7) k/uL Monocytes # (Manual) (0-1.0) k/uL Metamyelocytes # (Man) (0) k/uL Myelocytes # (Manual) (0) k/uL VBG pH (7.31-7.41) VBG pCO2 (37-51) mmHg VBG HCO3 (24-28) mmol/L Potassium (3.5-5.1) mmol/L Chloride (98-107) mmol/L Carbon Dioxide (22-30) mmol/L Creatinine (0.52-1.04) mg/dL Glucose (74-99) mg/dL POC Glucose (mg/dL) 160 H 168 H (75-99) mg/dL Plasma Lactic Acid Duke (0.7-2.0) mmol/L Calcium (8.4-10.2) mg/dL Phosphorus (2.5-4.5) mg/dL AST (14-36) U/L ALT (4-34) U/L Creatine Kinase (30-135) U/L Amylase (30-110) U/L Lipase (23-300) U/L Urine Appearance (Clear) Urine Protein (Negative) Urine Glucose (UA) (Negative) Urine Ketones (Negative) Urine Blood (Negative) Urine WBC (0-5) /hpf Amorphous Sediment (None) /hpf Urine Bacteria (None) /hpf Hyaline Casts (0-2) /lpf Urine Mucus (None) /hpf Chest x-ray: report reviewed Assessment and Plan (1) DKA (diabetic ketoacidoses) Narrative/Plan: Continue ICU management, patient critical care consult, IV hydration, DKA protocol Current Visit: Yes Status: Acute Code(s): E11.10 - TYPE 2 DIABETES MELLITUS WITH KETOACIDOSIS WITHOUT COMA SNOMED Code(s): 535387313 (2) Pancreatitis Narrative/Plan: IV morphine as needed, control symptoms, I advised that this tolerated, trend enzymes Current Visit: Yes Status: Acute Code(s): K85.90 - ACUTE PANCREATITIS WITHOUT NECROSIS OR INFECTION, UNSP SNOMED Code(s): 73877895 (3) Abdominal pain Narrative/Plan: Secondary to #2, Current Visit: Yes Status: Acute Code(s): R10.9 - UNSPECIFIED ABDOMINAL PAIN SNOMED Code(s): 23535248 (4) Rhabdomyolysis Narrative/Plan: We will continue to try IV hydration Current Visit: Yes Status: Acute Code(s): M62.82 - RHABDOMYOLYSIS SNOMED Code(s): 394001311
[2020-08-06 18:13] LABS: Glucose,Whole Blood 165 mg/dL (75-99)
[2020-08-06] MEDS: AMPICILLIN-SULBACTAM 3 GM in SODIUM CHLORIDE 0.9% 100 ML IVPB SCH (18:37)
[2020-08-06 19:24] LABS: Glucose,Whole Blood 172 mg/dL (75-99)
[2020-08-06 19:52] LABS: Hemoglobin A1C 8.5 % (4.0-6.0)
[2020-08-06 20:16] LABS: Glucose,Whole Blood 159 mg/dL (75-99)
[2020-08-06 21:24] LABS: Glucose,Whole Blood 147 mg/dL (75-99)
[2020-08-06 22:44] LABS: Glucose,Whole Blood 177 mg/dL (75-99)
[2020-08-06 23:25] LABS: Glucose,Whole Blood 179 mg/dL (75-99)
[2020-08-07 00:22] LABS: Glucose,Whole Blood 184 mg/dL (75-99)
[2020-08-07] MEDS: MORPHINE SULFATE 4 MG/ML SYRINGE IV PRN ×4 (00:58→19:58)
[2020-08-07] MEDS: MONTELUKAST 10 MG TAB PO SCH ×2 (01:00→22:46)
[2020-08-07] MEDS: METOPROLOL TARTRATE 25 MG TAB PO SCH ×4 (01:00→22:45)
[2020-08-07] MEDS: ATORVASTATIN 10 MG TAB PO SCH ×2 (01:01→22:46)
[2020-08-07] MEDS: busPIRone HCl 5 MG TAB PO SCH ×3 (01:01→22:46)
[2020-08-07] MEDS: traZODone HCL 50 MG TAB PO SCH ×2 (01:01→22:45)
[2020-08-07] MEDS: lamoTRIgine 100 MG TAB PO SCH ×3 (01:01→22:46)
[2020-08-07] MEDS: guanFACINE 1 MG TAB PO SCH ×2 (01:09→23:06)
[2020-08-07 01:47] LABS: Glucose,Whole Blood 187 mg/dL (75-99)
[2020-08-07 02:05] LABS: Magnesium 1.8 mg/dL (1.6-2.3); Phosphorus 2.1 mg/dL (2.5-4.5); Potassium 4.5 mmol/L (3.5-5.1)
[2020-08-07 02:53] LABS: Glucose,Whole Blood 187 mg/dL (75-99)
[2020-08-07] MEDS: D5-0.45% NACL WITH KCL 20MEQ/L 1,000 ML IV SCH ×3 (03:40→16:37)
[2020-08-07 03:46] LABS: Glucose,Whole Blood 195 mg/dL (75-99)
[2020-08-07] MEDS: SODIUM CHLORIDE 0.9% 1,000 ML IV SCH ×2 (03:53→19:56)
[2020-08-07 05:11] LABS: Glucose,Whole Blood 255 mg/dL (75-99)
[2020-08-07 05:17] LABS: Basophils % (A) 0 %; Eosinophils # (A) 0.1 k/uL (0-0.7); Eosinophils % (A) 1 %; HCT 43.7 % (34.0-46.0); HGB 14.1 gm/dL (11.4-16.0); Lymphocytes # (A) 1.3 k/uL (1.0-4.8); Lymphocytes % (A) 10 %; MCH 29.7 pg (25.0-35.0); MCHC 32.2 g/dL (31.0-37.0); Mean Platelet Volume 9.5; Monocytes # (A) 0.6 k/uL (0-1.0); Monocytes % (A) 5 %; Neutrophils # (A) 11.8 k/uL (1.3-7.7); Neutrophils % (A) 84 %; Platelet Count 206 k/uL (150-450); RBC 4.74 m/uL (3.80-5.40); RDW 13.8 % (11.5-15.5)
[2020-08-07 05:28] LABS: MCV 92.3 fL (80.0-100.0)
[2020-08-07 05:39] LABS: ALT 48 U/L (4-34); AST 56 U/L (14-36); African American GFR (CKD) >90 (>60 ml/min/1.73 sqM); Alkaline Phosphatase 62 U/L (38-126); Blood Urea Nitrogen 4 mg/dL (7-17); Calcium 8.8 mg/dL (8.4-10.2); Chloride 108 mmol/L (98-107); Glucose 241 mg/dL (74-99); Magnesium 1.8 mg/dL (1.6-2.3); Non-African American GFR(CKD) >90 (>60 ml/min/1.73 sqM); Potassium 4.3 mmol/L (3.5-5.1); Sodium 132 mmol/L (137-145); Total Bilirubin 0.5 mg/dL (0.2-1.3); Total Protein 6.6 g/dL (6.3-8.2)
[2020-08-07 05:45] LABS: Anion Gap 17 mmol/L
[2020-08-07 05:57] LABS: Carbon Dioxide 7 mmol/L (22-30)
[2020-08-07 06:07] LABS: Glucose,Whole Blood 226 mg/dL (75-99)
[2020-08-07 07:12] LABS: Glucose,Whole Blood 212 mg/dL (75-99)
[2020-08-07] MEDS: AMPICILLIN-SULBACTAM 3 GM in SODIUM CHLORIDE 0.9% 100 ML IVPB SCH ×3 (07:32→16:30)
[2020-08-07] MEDS: EMPAGLIFLOZIN 25 MG PO SCH (07:36)
[2020-08-07] MEDS: FLUoxetine HCL 10 MG CAP PO SCH (07:43)
[2020-08-07] MEDS: PANTOPRAZOLE 40 MG/10 ML VIAL IV SCH (07:43)
[2020-08-07] MEDS: ARIPiprazole 2 MG TAB PO SCH (07:44)
[2020-08-07] MEDS: ENOXAPARIN 40 MG/0.4 ML SYRINGE SQ SCH (07:44)
[2020-08-07] MEDS: FOLIC ACID 1 MG TAB PO SCH (07:44)
[2020-08-07] MEDS: lisinopriL 5 MG TAB PO SCH ×2 (07:48→10:20)
[2020-08-07 08:05] LABS: Glucose,Whole Blood 204 mg/dL (75-99)
[2020-08-07 09:01] LABS: African American GFR (CKD) >90 (>60 ml/min/1.73 sqM); Blood Urea Nitrogen 4 mg/dL (7-17); Chloride 110 mmol/L (98-107); Glucose 211 mg/dL (74-99); Non-African American GFR(CKD) >90 (>60 ml/min/1.73 sqM); Phosphorus 1.6 mg/dL (2.5-4.5); Sodium 133 mmol/L (137-145)
[2020-08-07 09:03] LABS: Glucose,Whole Blood 199 mg/dL (75-99)
[2020-08-07 09:07] LABS: Anion Gap 13 mmol/L; Carbon Dioxide 10 mmol/L (22-30)
[2020-08-07 09:25] LABS: Potassium 4.4 mmol/L (3.5-5.1)
[2020-08-07 09:27] LABS: Creatine Kinase 4226 U/L (30-135)
[2020-08-07 09:29] LABS: VBG PH 7.36 (7.31-7.41)
[2020-08-07 10:07] LABS: Glucose,Whole Blood 203 mg/dL (75-99)
[2020-08-07 11:47] LABS: Glucose,Whole Blood 199 mg/dL (75-99)
[2020-08-07 12:03] LABS: African American GFR (CKD) >90 (>60 ml/min/1.73 sqM); Anion Gap 10 mmol/L; Blood Urea Nitrogen 4 mg/dL (7-17); Carbon Dioxide 14 mmol/L (22-30); Chloride 110 mmol/L (98-107); Glucose 220 mg/dL (74-99); Non-African American GFR(CKD) >90 (>60 ml/min/1.73 sqM); Phosphorus 1.5 mg/dL (2.5-4.5); Potassium 3.9 mmol/L (3.5-5.1); Sodium 134 mmol/L (137-145)
[2020-08-07 13:05] LABS: Glucose,Whole Blood 203 mg/dL (75-99)
[2020-08-07] MEDS ORDERED: Phosphorus Replacement Protoco 1 EACH MISC MISCELLANE PRN (13:09)
[2020-08-07] MEDS ORDERED: SODIUM CHLORIDE 0.9% 1,000 ML IV ONE (13:11)
[2020-08-07] MEDS: POTASSIUM PHOSPHATE 10 MMOL in SODIUM CHLORIDE 0.9% 250 ML IV SCH ×3 (13:47→18:41)
[2020-08-07 14:06] LABS: Glucose,Whole Blood 187 mg/dL (75-99)
[2020-08-07 14:56] VITALS: BMI 28.9
[2020-08-07 15:03] LABS: Glucose,Whole Blood 165 mg/dL (75-99)
[2020-08-07 15:38] LABS: African American GFR (CKD) >90 (>60 ml/min/1.73 sqM); Anion Gap 7 mmol/L; Blood Urea Nitrogen 3 mg/dL (7-17); Carbon Dioxide 15 mmol/L (22-30); Chloride 112 mmol/L (98-107); Glucose 171 mg/dL (74-99); Non-African American GFR(CKD) >90 (>60 ml/min/1.73 sqM); Phosphorus 1.8 mg/dL (2.5-4.5); Potassium 3.9 mmol/L (3.5-5.1); Sodium 134 mmol/L (137-145)
[2020-08-07 16:29] LABS: Glucose,Whole Blood 153 mg/dL (75-99)
[2020-08-07 17:22] LABS: Glucose,Whole Blood 155 mg/dL (75-99)
[2020-08-07 18:13] LABS: Glucose,Whole Blood 165 mg/dL (75-99)
[2020-08-07] MEDS: INSULIN DETEMIR (LEVEMIR) 100 UNIT/ML SYR SQ SCH (18:48)
[2020-08-07 19:17] LABS: Glucose,Whole Blood 167 mg/dL (75-99)
[2020-08-07 21:00] LABS: Glucose,Whole Blood 169 mg/dL (75-99)
--- NOTE | 2020-08-07 22:03 | P.PN ---
Subjective Progress Note Date: 08/07/20 (delayed charting seen at 1030) Principal diagnosis: DKA Patient is a 29-year-old female with a known history of diabetes mellitus following with endocrinology through [facility], appendectomy, cholecystectomy presented to the emergency department secondary to abdominal pain, nausea, vomiting, and shortness of breath. She was subsequently found to be in DKA with an anion gap metabolic acidosis and a bicarb of less than 5. She was also noted to have acute pancreatitis with lipase of 1221 as well as elevated DKA. She was started on DKA protocol as well as well as IV fluids. By the morning after admission she continued to be severely acidotic but anion gap was improving. She was maintained on insulin drip which was successfully transitioned to long-acting plus sliding scale in the evening of 08/07. Of note her symptoms started after resuming her semaglutide. Patient seen and examined at bedside. Abdominal pain is better, no longer nauseated, no chest pain, no shortness of breath. Has had DKA in the past. Is getting sick of being poked. Having some back pain. General: Ill-appearing, no distress, appears at stated age Derm: warm, dry Head: atraumatic, normocephalic, symmetric Eyes: EOMI, no lid lag, anicteric sclera Mouth: no lip lesion, mucus membranes moist Cardiovascular: S1S2 reg, no murmur, positive posterior tibial pulse bilateral, Lungs: CTA bilateral, no rhonchi, no rales , no accessory muscle use Abdominal: soft, tender to palpation epigastric, no guarding, no appreciable organomegaly Ext: no gross muscle atrophy, no edema, no contractures Neuro: CN II-XI grossly intact, no focal neuro deficits Psych: Alert, oriented, appropriate affect Severe DKA with resultant hyperkalemia, hypophosphatemia, with history of diabetic gastroparesis - Hold empagliflozin, Semaglutide, and Metformin - Transitioned from Insulin gtt to longacting and SSI - Should not go back on Semaglutide as now with hx of pancreatitis. - Blood sugar only mildly elevated on admission despite severe acidosis and suspect that may be a component of euglycemic DKA with SGLT2 inhibator - Outpatient endo follow-up at [facility] -Hemoglobin A1c 8.5 Pancreatitis -Suspect secondary to GLP-1 inhibitor which was recently resume -IV fluids -Clear liquid diet with improvement in nausea vomiting and abdominal pain -Repeat lipase in a.m. Rhabdomyolysis -Suspect secondary to dehydration -Increase IV fluids -Repeat bolus -Recheck CK in a.m. Mild transaminitis -Unknown if acute or chronic -Outpatient follow-up Dyslipidemia -"4 Hypertension -Lisinopril Asthma -Singulair, Shelbie DVT prophylaxis: Lovenox Discussed with: Patient and nursing Anticipated discharge: 1-[address]: home A total of 45 minutes was spent on the care of this complex patient more than 50% of the time was spent in counseling and care coordination. Objective - Vital Signs Vital signs: Vital Signs Temp 98.0 F 08/07/20 07:00 Pulse 108 H 08/07/20 21:14 Resp 16 08/07/20 21:14 BP 117/73 08/07/20 21:14 Pulse Ox 98 08/07/20 21:14 Intake & Output 08/07/20 08/07/20 08/08/20 06:59 18:59 06:59 Intake Total 11.687 16.265 Output Total 2500 1100 Balance -2488.313 -1083.735 Weight 71.668 kg Intake: Intake, IV Titration 11.687 16.265 Amount Insulin Regular 100 unit 11.687 16.265 In Sodium Chloride 0.9% 100 ml @ 0.1 UNITS/KG/HR 7.238 mls/hr IV .[id number] [facility] Rx#:[id number] Output: Urine 2500 1100 Other: Voiding Method Indwelling Catheter - Labs CBC & Chem 7: 08/07/20 04:46 08/07/20 14:50 Labs: Abnormal Lab Results - Last 24 Hours (Table) 08/06/20 08/06/20 08/07/20 Range/Units 22:42 23:24 00:21 WBC (3.8-10.6) k/uL Neutrophils # (1.3-7.7) k/uL VBG pCO2 (37-51) mmHg VBG HCO3 (24-28) mmol/L Sodium (137-145) mmol/L Chloride (98-107) mmol/L Carbon Dioxide (22-30) mmol/L BUN (7-17) mg/dL Glucose (74-99) mg/dL POC Glucose (mg/dL) 177 H 179 H 184 H (75-99) mg/dL Phosphorus (2.5-4.5) mg/dL AST (14-36) U/L ALT (4-34) U/L Creatine Kinase (30-135) U/L 08/07/20 08/07/20 08/07/20 Range/Units 00:47 01:46 02:51 WBC (3.8-10.6) k/uL Neutrophils # (1.3-7.7) k/uL VBG pCO2 (37-51) mmHg VBG HCO3 (24-28) mmol/L Sodium 133 L (137-145) mmol/L Chloride (98-107) mmol/L Carbon Dioxide 8 L* (22-30) mmol/L BUN (7-17) mg/dL Glucose (74-99) mg/dL POC Glucose (mg/dL) 187 H 187 H (75-99) mg/dL Phosphorus 2.1 L (2.5-4.5) mg/dL AST (14-36) U/L ALT (4-34) U/L Creatine Kinase (30-135) U/L 08/07/20 08/07/20 08/07/20 Range/Units 03:45 04:46 04:46 WBC 14.0 H (3.8-10.6) k/uL Neutrophils # 11.8 H (1.3-7.7) k/uL VBG pCO2 (37-51) mmHg VBG HCO3 (24-28) mmol/L Sodium 132 L (137-145) mmol/L Chloride 108 H (98-107) mmol/L Carbon Dioxide 7 L* (22-30) mmol/L BUN 4 L (7-17) mg/dL Glucose 241 H (74-99) mg/dL POC Glucose (mg/dL) 195 H (75-99) mg/dL Phosphorus (2.5-4.5) mg/dL AST 56 H (14-36) U/L ALT 48 H (4-34) U/L Creatine Kinase (30-135) U/L 08/07/20 08/07/20 08/07/20 Range/Units 05:08 06:06 07:00 WBC (3.8-10.6) k/uL Neutrophils # (1.3-7.7) k/uL VBG pCO2 (37-51) mmHg VBG HCO3 (24-28) mmol/L Sodium (137-145) mmol/L Chloride (98-107) mmol/L Carbon Dioxide (22-30) mmol/L BUN (7-17) mg/dL Glucose (74-99) mg/dL POC Glucose (mg/dL) 255 H 226 H 212 H (75-99) mg/dL Phosphorus (2.5-4.5) mg/dL AST (14-36) U/L ALT (4-34) U/L Creatine Kinase (30-135) U/L 08/07/20 08/07/20 08/07/20 Range/Units 07:42 08:03 08:19 WBC (3.8-10.6) k/uL Neutrophils # (1.3-7.7) k/uL VBG pCO2 19 L (37-51) mmHg VBG HCO3 11 L (24-28) mmol/L Sodium 133 L (137-145) mmol/L Chloride 110 H (98-107) mmol/L Carbon Dioxide 10 L (22-30) mmol/L BUN 4 L (7-17) mg/dL Glucose 211 H (74-99) mg/dL POC Glucose (mg/dL) 204 H (75-99) mg/dL Phosphorus 1.6 L (2.5-4.5) mg/dL AST (14-36) U/L ALT (4-34) U/L Creatine Kinase 4226 H* (30-135) U/L 08/07/20 08/07/20 08/07/20 Range/Units 09:02 10:04 11:19 WBC (3.8-10.6) k/uL Neutrophils # (1.3-7.7) k/uL VBG pCO2 (37-51) mmHg VBG HCO3 (24-28) mmol/L Sodium 134 L (137-145) mmol/L Chloride 110 H (98-107) mmol/L Carbon Dioxide 14 L (22-30) mmol/L BUN 4 L (7-17) mg/dL Glucose 220 H (74-99) mg/dL POC Glucose (mg/dL) 199 H 203 H (75-99) mg/dL Phosphorus 1.5 L (2.5-4.5) mg/dL AST (14-36) U/L ALT (4-34) U/L Creatine Kinase (30-135) U/L 08/07/20 08/07/20 08/07/20 Range/Units 11:46 13:01 14:00 WBC (3.8-10.6) k/uL Neutrophils # (1.3-7.7) k/uL VBG pCO2 (37-51) mmHg VBG HCO3 (24-28) mmol/L Sodium (137-145) mmol/L Chloride (98-107) mmol/L Carbon Dioxide (22-30) mmol/L BUN (7-17) mg/dL Glucose (74-99) mg/dL POC Glucose (mg/dL) 199 H 203 H 187 H (75-99) mg/dL Phosphorus (2.5-4.5) mg/dL AST (14-36) U/L ALT (4-34) U/L Creatine Kinase (30-135) U/L 08/07/20 08/07/20 08/07/20 Range/Units 14:50 15:00 16:15 WBC (3.8-10.6) k/uL Neutrophils # (1.3-7.7) k/uL VBG pCO2 (37-51) mmHg VBG HCO3 (24-28) mmol/L Sodium 134 L (137-145) mmol/L Chloride 112 H (98-107) mmol/L Carbon Dioxide 15 L (22-30) mmol/L BUN 3 L (7-17) mg/dL Glucose 171 H (74-99) mg/dL POC Glucose (mg/dL) 165 H 153 H (75-99) mg/dL Phosphorus 1.8 L (2.5-4.5) mg/dL AST (14-36) U/L ALT (4-34) U/L Creatine Kinase (30-135) U/L 08/07/20 08/07/20 08/07/20 Range/Units 17:17 18:07 19:16 WBC (3.8-10.6) k/uL Neutrophils # (1.3-7.7) k/uL VBG pCO2 (37-51) mmHg VBG HCO3 (24-28) mmol/L Sodium (137-145) mmol/L Chloride (98-107) mmol/L Carbon Dioxide (22-30) mmol/L BUN (7-17) mg/dL Glucose (74-99) mg/dL POC Glucose (mg/dL) 155 H 165 H 167 H (75-99) mg/dL Phosphorus (2.5-4.5) mg/dL AST (14-36) U/L ALT (4-34) U/L Creatine Kinase (30-135) U/L 08/07/20 Range/Units 20:57 WBC (3.8-10.6) k/uL Neutrophils # (1.3-7.7) k/uL VBG pCO2 (37-51) mmHg VBG HCO3 (24-28) mmol/L Sodium (137-145) mmol/L Chloride (98-107) mmol/L Carbon Dioxide (22-30) mmol/L BUN (7-17) mg/dL Glucose (74-99) mg/dL POC Glucose (mg/dL) 169 H (75-99) mg/dL Phosphorus (2.5-4.5) mg/dL AST (14-36) U/L ALT (4-34) U/L Creatine Kinase (30-135) U/L Microbiology - Last 24 Hours (Table) 08/06/20 06:07 Blood Culture - Preliminary Blood No Growth after 24 hours
[2020-08-07 22:30] LABS: Glucose,Whole Blood 183 mg/dL (75-99)
[2020-08-07] MEDS: INSULIN ASPART (NovoLOG) 100 UNIT/ML VIAL SQ SCH (22:46)
[2020-08-08] MEDS: AMPICILLIN-SULBACTAM 3 GM in SODIUM CHLORIDE 0.9% 100 ML IVPB SCH ×3 (00:26→17:47)
[2020-08-08 02:41] LABS: Glucose,Whole Blood 156 mg/dL (75-99)
[2020-08-08] MEDS: SODIUM CHLORIDE 0.9% 1,000 ML IV SCH ×3 (03:27→21:42)
[2020-08-08 07:14] LABS: Glucose,Whole Blood 134 mg/dL (75-99)
[2020-08-08] MEDS: PANTOPRAZOLE 40 MG/10 ML VIAL IV SCH (07:51)
[2020-08-08] MEDS: busPIRone HCl 5 MG TAB PO SCH ×2 (07:51→21:25)
[2020-08-08] MEDS: INSULIN ASPART (NovoLOG) 100 UNIT/ML VIAL SQ SCH ×4 (07:51→21:01)
[2020-08-08] MEDS: lisinopriL 5 MG TAB PO SCH (07:52)
[2020-08-08] MEDS: METOPROLOL TARTRATE 25 MG TAB PO SCH ×2 (07:52→21:26)
[2020-08-08] MEDS: lamoTRIgine 100 MG TAB PO SCH ×2 (07:52→21:26)
[2020-08-08] MEDS: FOLIC ACID 1 MG TAB PO SCH (07:52)
[2020-08-08] MEDS: ARIPiprazole 2 MG TAB PO SCH (07:53)
[2020-08-08] MEDS: FLUoxetine HCL 10 MG CAP PO SCH (07:53)
[2020-08-08] MEDS: ENOXAPARIN 40 MG/0.4 ML SYRINGE SQ SCH (07:53)
[2020-08-08] MEDS: EMPAGLIFLOZIN 25 MG PO SCH (07:54)
[2020-08-08] MEDS ORDERED: INSULIN REGULAR 100 UNIT in SODIUM CHLORIDE 0.9% 100 ML IV SCH (09:00)
[2020-08-08 10:41] LABS: HCT 34.6 % (34.0-46.0); MCH 31.3 pg (25.0-35.0); MCHC 34.5 g/dL (31.0-37.0); MCV 90.6 fL (80.0-100.0); Mean Platelet Volume 9.4; Platelet Count 162 k/uL (150-450); RBC 3.82 m/uL (3.80-5.40); RDW 13.3 % (11.5-15.5)
[2020-08-08 10:53] LABS: African American GFR (CKD) >90 (>60 ml/min/1.73 sqM); Anion Gap 10 mmol/L; Blood Urea Nitrogen 4 mg/dL (7-17); Calcium 8.4 mg/dL (8.4-10.2); Carbon Dioxide 16 mmol/L (22-30); Chloride 114 mmol/L (98-107); Glucose 159 mg/dL (74-99); Magnesium 1.9 mg/dL (1.6-2.3); Non-African American GFR(CKD) >90 (>60 ml/min/1.73 sqM); Potassium 3.6 mmol/L (3.5-5.1); Sodium 140 mmol/L (137-145)
[2020-08-08 11:12] LABS: Creatine Kinase 1403 U/L (30-135)
[2020-08-08 11:46] LABS: Glucose,Whole Blood 142 mg/dL (75-99)
[2020-08-08 16:59] LABS: Glucose,Whole Blood 105 mg/dL (75-99)
[2020-08-08] MEDS: INSULIN DETEMIR (LEVEMIR) 100 UNIT/ML SYR SQ SCH (17:48)
--- NOTE | 2020-08-08 20:29 | P.PN ---
Subjective Progress Note Date: 08/08/20 (angela hu seen at 0930) Principal diagnosis: DKA Patient is a 29-year-old female with a known history of diabetes mellitus following with endocrinology through [facility], appendectomy, cholecystectomy presented to the emergency department secondary to abdominal pain, nausea, vomiting, and shortness of breath. She was subsequently found to be in DKA with an anion gap metabolic acidosis and a bicarb of less than 5. She was also noted to have acute pancreatitis with lipase of 1221 as well as elevated DKA. She was started on DKA protocol as well as well as IV fluids. By the morning after admission she continued to be severely acidotic but anion gap was improving. She was maintained on insulin drip which was successfully transitioned to long-acting plus sliding scale in the evening of 08/07. Of note her symptoms started after resuming her semaglutide. On the morning of 08/08 for abdominal pain and nausea and vomiting improved significantly. She felt that she could try and increase diet. Her CK had decreased. She still remained acidotic with a carbon dioxide of 16 however her anion gap was closed at 10. Sugar was well controlled. Patient seen and examined at bedside. Feeling better. No nausea or vomiting. Feels as though she wants to eat a regular diet. No chest pain or shortness of breath. Complains of some upper extremity swelling. General: Ill-appearing, no distress, appears at stated age Derm: warm, dry Head: atraumatic, normocephalic, symmetric Eyes: EOMI, no lid lag, anicteric sclera Mouth: no lip lesion, mucus membranes moist Cardiovascular: S1S2 reg, no murmur, positive posterior tibial pulse bilateral, Lungs: Decreased breath sounds bilateral, no rhonchi, no rales , no accessory muscle use Abdominal: soft, tender to palpation epigastric, no guarding, no appreciable organomegaly Ext: no gross muscle atrophy, no edema, no contractures Neuro: CN II-XI grossly intact, no focal neuro deficits Psych: Alert, oriented, appropriate affect Severe DKA with resultant hyperkalemia, hypophosphatemia, with history of diabetic gastroparesis - Hold empagliflozin, Semaglutide, and Metformin - Continue with Levemir and sliding scale insulin - Should not go back on Semaglutide as now with hx of pancreatitis. - Blood sugar only mildly elevated on admission despite severe acidosis and suspect that may be a component of euglycemic DKA with SGLT2 inhibitor patient has order for ketone strips that has not Picked them up. She will do this after discharge. - Outpatient endo follow-up at [facility]. Patient is instructed to call on Sunday 08/12 to move up her appointment - Hemoglobin A1c 8.5 Pancreatitis -Suspect secondary to GLP-1 inhibitor which was recently resumed -IV fluids - Abdominal pain is resolved we will try her on a regular diet -Repeat lipase in a.m. Rhabdomyolysis, improving -Suspect secondary to dehydration -Increase IV fluids -Repeat bolus -Recheck CK in a.m. Mild transaminitis -Unknown if acute or chronic -Outpatient follow-up Dyslipidemia -statin Hypertension -Lisinopril Asthma -Singulair, Shelbie DVT prophylaxis: Lovenox Discussed with: Patient and nursing Anticipated discharge: in AM Anticipated discharge place: home A total of 35 minutes was spent on the care of this complex patient more than 50% of the time was spent in counseling and care coordination. Objective - Vital Signs Vital signs: Vital Signs Temp 98.0 F 08/08/20 13:45 Pulse 94 08/08/20 13:45 Resp 16 08/08/20 13:45 BP 116/77 08/08/20 13:45 Pulse Ox 99 08/08/20 13:45 Intake & Output 08/08/20 08/08/20 08/09/20 06:59 18:59 06:59 Output Total 1325 Balance -1325 Weight 71.668 kg 71.668 kg Output: Urine 1325 Stool 0 Other: Voiding Method Toilet - Labs CBC & Chem 7: 08/08/20 10:07 08/08/20 10:07 Labs: Abnormal Lab Results - Last 24 Hours (Table) 08/07/20 08/07/20 08/08/20 Range/Units 20:57 22:28 02:40 Chloride (98-107) mmol/L Carbon Dioxide (22-30) mmol/L BUN (7-17) mg/dL Glucose (74-99) mg/dL POC Glucose (mg/dL) 169 H 183 H 156 H (75-99) mg/dL Creatine Kinase (30-135) U/L 08/08/20 08/08/20 08/08/20 Range/Units 07:07 10:07 11:34 Chloride 114 H (98-107) mmol/L Carbon Dioxide 16 L (22-30) mmol/L BUN 4 L (7-17) mg/dL Glucose 159 H (74-99) mg/dL POC Glucose (mg/dL) 134 H 142 H (75-99) mg/dL Creatine Kinase 1403 H* (30-135) U/L 08/08/20 Range/Units 16:53 Chloride (98-107) mmol/L Carbon Dioxide (22-30) mmol/L BUN (7-17) mg/dL Glucose (74-99) mg/dL POC Glucose (mg/dL) 105 H (75-99) mg/dL Creatine Kinase (30-135) U/L Microbiology - Last 24 Hours (Table) 08/06/20 06:07 Blood Culture - Preliminary Blood No Growth after 48 hours
[2020-08-08 21:00] LABS: Glucose,Whole Blood 111 mg/dL (75-99)
[2020-08-08] MEDS: ATORVASTATIN 10 MG TAB PO SCH (21:25)
[2020-08-08] MEDS: guanFACINE 1 MG TAB PO SCH (21:26)
[2020-08-08] MEDS: MONTELUKAST 10 MG TAB PO SCH (21:26)
[2020-08-08] MEDS: traZODone HCL 50 MG TAB PO SCH (21:26)
[2020-08-09] MEDS: MORPHINE SULFATE 4 MG/ML SYRINGE IV PRN (01:33)
[2020-08-09] MEDS: AMPICILLIN-SULBACTAM 3 GM in SODIUM CHLORIDE 0.9% 100 ML IVPB SCH ×2 (01:50→10:01)
[2020-08-09 02:44] LABS: Glucose,Whole Blood 108 mg/dL (75-99)
[2020-08-09 07:15] LABS: Glucose,Whole Blood 110 mg/dL (75-99)
[2020-08-09 07:19] LABS: HCT 34.6 % (34.0-46.0); MCH 31.4 pg (25.0-35.0); MCHC 34.7 g/dL (31.0-37.0); MCV 90.5 fL (80.0-100.0); Mean Platelet Volume 9.4; Platelet Count 152 k/uL (150-450); RBC 3.82 m/uL (3.80-5.40); RDW 13.2 % (11.5-15.5)
[2020-08-09] MEDS: INSULIN ASPART (NovoLOG) 100 UNIT/ML VIAL SQ SCH ×2 (07:32→12:07)
[2020-08-09] MEDS: INSULIN REGULAR 100 UNIT in SODIUM CHLORIDE 0.9% 100 ML IV SCH ×2 (07:34→07:35)
[2020-08-09] MEDS: EMPAGLIFLOZIN 25 MG PO SCH (09:34)
[2020-08-09] MEDS: METOPROLOL TARTRATE 25 MG TAB PO SCH (09:38)
[2020-08-09] MEDS: FOLIC ACID 1 MG TAB PO SCH (09:38)
[2020-08-09] MEDS: lamoTRIgine 100 MG TAB PO SCH (09:38)
[2020-08-09] MEDS: PANTOPRAZOLE 40 MG/10 ML VIAL IV SCH (09:38)
[2020-08-09] MEDS: ENOXAPARIN 40 MG/0.4 ML SYRINGE SQ SCH (09:38)
[2020-08-09] MEDS: FLUoxetine HCL 10 MG CAP PO SCH (09:38)
[2020-08-09] MEDS: lisinopriL 5 MG TAB PO SCH (09:39)
[2020-08-09] MEDS: busPIRone HCl 5 MG TAB PO SCH (09:39)
[2020-08-09] MEDS: ARIPiprazole 2 MG TAB PO SCH (09:39)
[2020-08-09] MEDS: SODIUM CHLORIDE 0.9% 1,000 ML IV SCH (10:01)
[2020-08-09 10:58] LABS: African American GFR (CKD) 141.8 (60.0-200.0); Albumin 3.6 g/dL (3.80-4.90); Albumin/Globulin Ratio 2.25 (1.60-3.17); Anion Gap 10.2 mmol/L (4.00-12.00); BUN/Creat Ratio 8.33 Ratio (12.00-20.00); Calcium 8.6 mg/dL (8.7-10.3); Carbon Dioxide 18.8 mmol/L (21.6-31.8); Globulin 1.6 g/dL (1.6-3.3); Magnesium 1.7 mg/dL (1.5-2.4); Non-African American GFR(CKD) 122.3 (60.0-200.0); Phosphorus 2.9 mg/dL (2.4-5.1); Potassium 3.2 mmol/L (3.5-5.5); Total Bilirubin 0.4 mg/dL (0.2-1.2); Total Protein 5.2 g/dL (6.2-8.2)
[2020-08-09] MEDS ORDERED: POTASSIUM CHLORIDE ER 20 MEQ TAB.ER PO STA (11:37)
[2020-08-09 11:44] LABS: Glucose,Whole Blood 139 mg/dL (75-99)
[2020-08-09 12:07] VITALS: BP 125/85; PULSE 71; RESP 18; TEMP 97.9
--- NOTE | 2020-08-09 17:40 | P.DS ---
Providers Date of admission: 08/06/20 06:31 Expected date of discharge: 08/09/20 Attending physician: Ankur Harden MD Consults: 08/06/20 06:31 Consult Physician Routine Consulting Provider: Ritesh Prado Consult Reason/Comments: icu Do you want consulting provider notified?: Yes Primary care physician: Physician Nonstaff Hospital Course: Discharge Diagnosis: Severe DKA with resultant hyperkalemia, hypophosphatemia, with history of diabetic gastroparesis Pancreatitis Phabdo Mild transaminitis dyslipidemia HTN Asthma Hospital Course: Patient is a 29-year-old female with a known history of diabetes mellitus following with endocrinology through [facility], appendectomy, cholecystectomy presented to the emergency department secondary to abdominal pain, nausea, vomiting, and shortness of breath. She was subsequently found to be in DKA with an anion gap metabolic acidosis and a bicarb of less than 5. She was also noted to have acute pancreatitis with lipase of 1221 as well as elevated DKA. She was started on DKA protocol as well as well as IV fluids. By the morning after admission she continued to be severely acidotic but anion gap was improving. She was maintained on insulin drip which was successfully transitioned to long-acting plus sliding scale in the evening of 08/07. Of note her symptoms started after resuming her semaglutide. On the morning of 08/08 for abdominal pain and nausea and vomiting improved significantly. She felt that she could try and increase diet. Her CK had decreased. She still remained acidotic with a carbon dioxide of 16 however her anion gap was closed at 10. Sugar was well controlled. She was provided with one more day of IV fluids and her bicarbonate increased to 19. She was determined stable for discharge home. There was some concern that she had a partial euglycemic DKA due to her Jardaince use. She has Ketone strips that were ordered which she will bead picker from the pharmacy. She will stay off Ozempic due to pancreatitis diagnosis. She will resume her Jardiance at her lower dose of 10 mg on 08/12 and will call her [facility] for further instructions. She will take Ademalog 2 at lunch a 4 at dinner. She will resume her current lantus dose and her metformin. Further instructions as detailed below. Patient seen and examined at bedside. Feeling much better today. Tolerating her diet well. No nausea, vomiting, or diarrhea. Vital signs reviewed and stable. General: non toxic, no distress, appears at stated age Derm: warm, dry Head: atraumatic, normocephalic, symmetric Eyes: EOMI, no lid lag, anicteric sclera Mouth: no lip lesion, mucus membranes moist Cardiovascular: S1S2 reg, no murmur, positive posterior tibial pulse bilateral, Lungs: CTA bilateral, no rhonchi, no rales , no accessory muscle use Abdominal: soft, nontender to palpation, no guarding, no appreciable organomegaly Ext: no gross muscle atrophy, no edema, no contractures Neuro: CN II-XI grossly intact, no focal neuro deficits Psych: Alert, oriented, appropriate affect A total of 35 minutes of time were spent preparing this complex discharge summary . Patient Condition at Discharge: Good Plan - Discharge Summary Discharge Rx Participant: No New Discharge Prescriptions: New Insulin Lispro [Admelog Solostar] 2 units SQ DIRECTED #5 pen Continue traZODone HCL 150 mg PO HS Pantoprazole [Protonix] 40 mg PO DAILY Ondansetron Odt [Zofran ODT] 4 mg PO Q8HR PRN PRN Reason: Nausea Ergocalciferol [Vitamin D2 (DRISDOL)] 50,000 unit PO Q7D Montelukast Sodium [Singulair] 10 mg PO HS Metoprolol Tartrate [Lopressor] 25 mg PO BID Metoclopramide [Reglan] 5 mg PO ACHS metFORMIN HCL ER [Glucophage Xr] 1,000 mg PO BID lisinopriL [Zestril] 5 mg PO DAILY Lovastatin [Mevacor] 20 mg PO HS Empagliflozin [Jardiance] 25 mg PO DAILY lamoTRIgine 200 mg PO BID guanFACINE [Tenex] 1 mg PO HS FLUoxetine HCL [PROzac] 10 mg PO DAILY clonazePAM [KlonoPIN] 0.5 mg PO BID PRN PRN Reason: Anxiety Folic Acid 2 mg PO DAILY Dicyclomine [Bentyl] 10 mg PO QID PRN PRN Reason: IBS Azelastine HCl [Astepro] 1 - 2 spray EA NOSTRIL BID Fexofenadine HCl [Shelbie Allergy] 180 mg PO DAILY ARIPiprazole [Abilify] 2 mg PO DAILY busPIRone HCL 15 mg PO BID Changed Insulin Glargine,Hum.rec.anlog [Lantus Solostar] 30 unit SQ DAILY #0 Discontinued Semaglutide [Ozempic] 0.5 mg SQ Q7D Exenatide Microspheres [Bydureon Pen] 2 mg SQ Q7D Discharge Medication List ARIPiprazole [Abilify] 2 mg PO DAILY 08/06/20 [History] Azelastine HCl [Astepro] 1 - 2 spray EA NOSTRIL BID 08/06/20 [History] Dicyclomine [Bentyl] 10 mg PO QID PRN 08/06/20 [History] Empagliflozin [Jardiance] 25 mg PO DAILY 08/06/20 [History] Ergocalciferol [Vitamin D2 (DRISDOL)] 50,000 unit PO Q7D 08/06/20 [History] FLUoxetine HCL [PROzac] 10 mg PO DAILY 08/06/20 [History] Fexofenadine HCl [Shelbie Allergy] 180 mg PO DAILY 08/06/20 [History] Folic Acid 2 mg PO DAILY 08/06/20 [History] Lovastatin [Mevacor] 20 mg PO HS 08/06/20 [History] Metoclopramide [Reglan] 5 mg PO ACHS 08/06/20 [History] Metoprolol Tartrate [Lopressor] 25 mg PO BID 08/06/20 [History] Montelukast Sodium [Singulair] 10 mg PO HS 08/06/20 [History] Ondansetron Odt [Zofran ODT] 4 mg PO Q8HR PRN 08/06/20 [History] Pantoprazole [Protonix] 40 mg PO DAILY 08/06/20 [History] busPIRone HCL 15 mg PO BID 08/06/20 [History] clonazePAM [KlonoPIN] 0.5 mg PO BID PRN 08/06/20 [History] guanFACINE [Tenex] 1 mg PO HS 08/06/20 [History] lamoTRIgine 200 mg PO BID 08/06/20 [History] lisinopriL [Zestril] 5 mg PO DAILY 08/06/20 [History] metFORMIN HCL ER [Glucophage Xr] 1,000 mg PO BID 08/06/20 [History] traZODone HCL 150 mg PO HS 08/06/20 [History] Insulin Glargine,Hum.rec.anlog [Lantus Solostar] 30 unit SQ DAILY #0 08/09/20 [Rx] Insulin Lispro [Admelog Solostar] 2 units SQ DIRECTED #5 pen 08/09/20 [Rx] Follow up Appointment(s)/Referral(s): Parag Hernandez, [REFERRING] - 1-2 Days (SHARAN Navarrete is PCP through same office) Patient Instructions/Handouts: Insulin Lispro Protamine/Insulin Lispro (By injection), Rhabdomyolysis (DC), Diabetic Ketoacidosis (DC) Activity/Diet/Wound Care/Special Instructions: Activity: as tolerated Diet: carb consistent Special Instructions: Jardiance resume on 08/12/2020 at 10 mg dose Check blood sugar 2 hours after meal, goal is less than 180, if blood sugar is less than 110 hold admelog encourage hydrating fluids at home for the next 1-2 days Follow-up with [facility] next week Discharge Disposition: HOME SELF-CARE
[2020-08-10] MEDS ORDERED: PANTOPRAZOLE 40 MG TABLET PO SCH (07:30)
[2020-08-11] MEDS ORDERED: ERGOCALCIFEROL 50,000 UNIT CAP PO SCH (12:00)
== END 2020-08-09 15:00 | disposition home or self-care (01) | DRG 637 ==
LOC: EC 05:20 → 2SICU 06:31 → 5NMEDONC 08-07 20:03
PROVIDERS: ADMIT Internal Medicine; ATTEND Internal Medicine
DX: E10.10 Type 1 diabetes mellitus with ketoacidosis without coma (principal); K85.90 Acute pancreatitis without necrosis or infection, unspecified; G93.41 Metabolic encephalopathy; M62.82 Rhabdomyolysis; E83.39 Other disorders of phosphorus metabolism; E10.43 Type 1 diabetes mellitus with diabetic autonomic (poly)neuropathy; F31.9 Bipolar disorder, unspecified; Z79.4 Long term (current) use of insulin; E86.0 Dehydration; I10 Essential (primary) hypertension; K31.84 Gastroparesis; E78.5 Hyperlipidemia, unspecified; E87.5 Hyperkalemia; J45.909 Unspecified asthma, uncomplicated; Z79.899 Other long term (current) drug therapy; Z90.49 Acquired absence of other specified parts of digestive tract; Z87.19 Personal history of other diseases of the digestive system; Z86.69 Personal history of other diseases of the nervous system and sense organs; Z98.890 Other specified postprocedural states
CPT/HCPCS: 36415; 71045; 80048; 80051; 80053; 81001; 82009; 82150; 82550; 82565; 82803; 82947; 83036; 83605; 83690; 83735; 84100; 84520; 85025; 85027; 87040; 96361; 96365; 96366; 96368; 96372; 96375; 96376; 99291